=== PATIENT | female | born 1995 | race Caucasian/White ===

== ENCOUNTER 2020-07-13 10:30 | Emergency (ER) | payer OTHER ==
[~2020-07-13] VITALS: Ht 157.5 cm; Wt 94.8 kg
[2020-07-13 11:00] VITALS: Ht 157.5 cm; Wt 94.8 kg
[2020-07-13 13:54] VITALS: BP 110/79
== END 2020-07-13 13:54 | disposition home or self-care (01) ==
LOC: ED 10:30
DX: N60.02 Solitary cyst of left breast (principal)
CPT/HCPCS: J1885